=== PATIENT | male | born 1990 | race African-American/Black ===

== ENCOUNTER 2017-04-01 01:42 | Emergency (ER) | payer SELFPAY ==
[~2017-04-01] VITALS: Ht 180.3 cm; Wt 81.6 kg
[2017-04-01] MEDS ORDERED: Pantoprazole Inj IV ONE (03:30)
[2017-04-01 03:46] LABS: EOSINOPHILS % (AUTO) 4.5 % (0.0-3.0); LYMPHOCYTES % (AUTO) 28.8 % (20.0-45.0); MEAN CORPUSCULAR HEMOGLOBIN 30.3 PG (27.0-31.0); MEAN CORPUSCULAR HGB CONC 31.6 G/DL (32.0-36.0); MEAN CORPUSCULAR VOLUME 96 FL (80-99); MEAN PLATELET VOLUME 7.7 FL (6.5-10.1); MONOCYTES % (AUTO) 7.6 % (1.0-10.0); NEUTROPHILS % (AUTO) 58.2 % (45.0-75.0); PLATELET COUNT 233 K/UL (150-450); RED BLOOD COUNT 4.39 M/UL (4.70-6.10); RED CELL DISTRIBUTION WIDTH 11.2 % (11.6-14.8); WHITE BLOOD COUNT 7.1 K/UL (4.8-10.8)
[2017-04-01 03:49] LABS: APPEARANCE,URINE CLEAR; KETONES,URINE NEGATIVE (NEGATIVE); NITRITE,URINE NEGATIVE (NEGATIVE); PH,URINE 5 (4.5-8.0); PROTEIN,URINE NEGATIVE (NEGATIVE); UROBILINOGEN,URINE 1 MG/DL (0.0-1.0)
[2017-04-01 04:00] VITALS: BP 107/54
[2017-04-01 04:00] LABS: ALANINE AMINOTRANSFERASE 12 U/L (3-41); ALBUMIN/GLOBULIN RATIO 1.3 (1.0-2.7); ANION GAP 13 (5-15); ASPARTATE AMINO TRANSFERASE 21 U/L (5-40); CALCIUM 9.1 mg/dL (8.6-10.2); CARBON DIOXIDE 26 mEQ/L (20-30); CHLORIDE 101 mEQ/L (98-107); CREATININE 0.9 mg/dL (0.7-1.2); GLOMERULAR FILTRATION RATE > 60 mL/min (>60); HEMOLYSIS 3; LIPASE 26 U/L (< 60); POTASSIUM 3.9 mEQ/L (3.4-4.9); SODIUM 140 mEQ/L (135-145); TOTAL PROTEIN 6.6 g/dL (6.6-8.7)
[2017-04-01 04:02] LABS: LEUKOCYTE ESTERASE ,URINE NEGATIVE (NEGATIVE)
[2017-04-01 04:22] LABS: BILIRUBIN,DIRECT 0.2 mg/dL (0.1-0.3)
[2017-04-01] MEDS ORDERED: ALBENDAZOLE 200 MG ORAL SCH (05:15)
--- NOTE | 2017-04-01 05:17 | Emergency Room Report ---
History of Present Illness General Chief Complaint: Abdominal Pain Source: Patient Present Illness HPI 26YOM [employer] patient with 2 months of generalized abd cramps, watery diarrhea and nausea. Denies fever/chills, weight loss, vomiting. Was in [facility] recently where he drank the water. Denies history of gastritis, abd/pelvic surgery, other medical problems, ulcers Food makes pain better. Allergies: Coded Allergies: SOY (Verified Allergy, Unknown, 04/01/17) Patient History Past Medical History: none Past Surgical History: none Pertinent Family History: none Social History: Denies: alcohol use, drug use, smoking Immunizations: UTD Reviewed Nursing Documentation: PMH: Agreed, PSxH: Agreed Nursing Documentation-PMH Past Medical History: No Stated History Review of Systems All Other Systems: negative except mentioned in HPI Physical Exam Vital Signs Date Time Temp Pulse Resp B/P Pulse Ox O2 Delivery O2 Flow Rate FiO2 04/01/17 02:38 97.9 76 18 120/67 99 Room Air Sp02 EP Interpretation: reviewed, normal General Appearance: normal inspection, well appearing, no apparent distress, alert, GCS 15, non-toxic Head: normocephalic, atraumatic Eyes: bilateral eye EOMI, bilateral eye PERRL ENT: normal ENT inspection, hearing grossly normal, normal voice Neck: normal inspection, full range of motion, supple, no bony tend Respiratory: normal inspection, lungs clear, normal breath sounds, no respiratory distress, no retraction, no wheezing Cardiovascular #1: regular rate, rhythm, no edema Gastrointestinal: normal inspection, normal bowel sounds, non tender, soft, no guarding, no hernia Genitourinary: no CVA tenderness Musculoskeletal: normal inspection, back normal, normal range of motion, Preston' s Sign negative Neurologic: normal inspection, alert, oriented x3, responsive, operations administrator III-XII nml as tested, motor strength/tone normal, speech normal Psychiatric: normal inspection, judgement/insight normal, mood/affect normal Skin: normal inspection, normal color, no rash Medical Decision Making Diagnostic Impression: Primary Impression: Abdominal pain Qualified Codes: R10.84 - Generalized abdominal pain Additional Impression: Eosinophilia ER Course Abd pain for 2 months, recent [facility] [place] visit - Eosinophila - Concern for helminth infection - Uptodate recommends Albendazole as single 400mg dose - we do not have available in hospital so Rx was given - Rx for pepcid, zofran as well - Rest of labs including LFTs, lipase were negative Last Vital Signs Date Time Temp Pulse Resp B/P Pulse Ox O2 Delivery O2 Flow Rate FiO2 04/01/17 04:00 67 18 107/54 100 Room Air 04/01/17 02:38 97.9 Status: improved Disposition: HOME, SELF-CARE Scripts Ondansetron Odt* (ZOFRAN ODT*) 4 Mg Tab.rapdis 4 MG ORAL BID Y for Nausea & Vomiting for 7 Days, #14 TAB 0 Refills Prov: LAURYN HORVATH M.D. 04/01/17 Famotidine (PEPCID) 20 Mg Tablet 20 MG ORAL BID for 7 Days, #14 TAB 0 Refills Prov: LAURYN HORVATH M.D. 04/01/17 Albendazole (Albenza) 200 Mg Tablet 400 MG ORAL ONCE, #2 TAB Prov: LAURYN HORVATH M.D. 04/01/17 Referrals: NOT CHOSEN ROXANE/,REFERRING (PCP) LAURYN HORVATH M.D. Apr 01, 2017 05:17
[2017-04-01] MEDS ORDERED: ZOFRAN ODT4 MG ORAL (05:24)
[2017-04-01] MEDS ORDERED: ALBENZA200 MG ORAL (05:24)
[2017-04-01] MEDS ORDERED: PEPCID20 MG ORAL (05:24)
[2017-04-01 05:41] VITALS: BP 106/59
== END 2017-04-01 05:30 | disposition home or self-care (01) ==
LOC: EMR 02:05
DX: R10.84 Generalized abdominal pain (principal); D72.1 Eosinophilia; Z91.018 Allergy to other foods
CPT/HCPCS: 36415; 80053; 81003; 82248; 83690; 85025; 96374; 96375; 99284; C9113; J2405